=== PATIENT | female | born 1960 | race Caucasian/White ===

== ENCOUNTER 2016-07-27 17:30 | Emergency (ER) | payer OTHER ==
[2016-07-27 17:38] VITALS: BP 132/99; PULSE 90; TEMP 97.6; BMI 22.1
--- NOTE | 2016-07-27 17:49 | PDOC ---
History of Present Illness - General History Source: Patient Exam Limitations: No Limitations - History of Present Illness Initial Comments: 07/27/16 17:53 The patient is a 56 year old female with a PMHx of epilepsy who presents to the ED with left index finger pain for two days. Patient reports she was taking her garbage out when she tripped and fell. She caught her fall with her left hand. Her index finger bent back. Since then, she has had left index finger pain, and difficulty moving due to the pain. She reports associated swelling. She took Vicodin that her fiance had, with minimal relief. She has no other complaints. <Rody Lozoya - Last Filed: 07/27/16 18:56> - General History Source: Patient Exam Limitations: No Limitations <Quique Ortega - Last Filed: 07/27/16 19:07> - General Chief Complaint: Injury Stated Complaint: LEFT INDEX FINGER INJURY Time Seen by Provider: 07/27/16 17:32 Past History <Rody Lozoya - Last Filed: 07/27/16 18:56> - Past Medical History Psychiatric Problems: Yes (ANXIETY, INSOMNIA) Suicide Attempt (Hx): No Seizures: Yes - Psycho/Social/Smoking Cessation Hx Anxiety: Yes Suicidal Ideation: No Smoking History: Current every day smoker Have you smoked in the past 12 months: Yes Number of Cigarettes Smoked Daily: 3 Information on smoking cessation initiated: No 'Breaking Loose' booklet given: 12/31/14 Hx Alcohol Use: No Drug/Substance Use Hx: No Substance Use Type: None <Quique Ortega - Last Filed: 07/27/16 19:07> - Past Medical History Allergies/Adverse Reactions: Allergies Allergy/AdvReac Type Severity Reaction Status Date / Time acetaminophen [From Vicodin] AdvReac Intermediate Nausea Verified 07/27/16 17:31 codeine AdvReac Intermediate Nausea Verified 07/27/16 17:31 hydrocodone bitartrate AdvReac Intermediate Nausea Verified 07/27/16 17:31 [From Vicodin] morphine AdvReac Intermediate Nausea Verified 07/27/16 17:31 oxycodone HCl [From Percocet] AdvReac Intermediate Nausea Verified 07/27/16 17: 31 OPIATES Allergy Intermediate Nausea Uncoded 12/31/14 10:21 Home Medications: Ambulatory Orders Clonazepam 2 mg PO HS 07/27/16 Hydrocodone/Acetaminophen [Vicodin 5-300 mg Tablet] 1 each PO Q6H PRN #15 tablet MDD 4 07/27/16 Review of Systems - Review of Systems Able to Perform ROS?: Yes Comments:: 07/27/16 17:53 GENERAL/CONSTITUTIONAL: No fever or chills. No weakness. HEAD, EYES, EARS, NOSE AND THROAT: No change in vision. No ear pain or discharge. No sore throat. CARDIOVASCULAR: No chest pain or shortness of breath. RESPIRATORY: No cough, wheezing, or hemoptysis. GASTROINTESTINAL: No nausea, vomiting, diarrhea or constipation. GENITOURINARY: No dysuria, frequency, or change in urination. MUSCULOSKELETAL: + left index finger pain and swelling. No neck or back pain. SKIN: No rash NEUROLOGIC: No headache, vertigo, loss of consciousness, or change in strength/ sensation. ENDOCRINE: No increased thirst. No abnormal weight change. HEMATOLOGIC/LYMPHATIC: No anemia, easy bleeding, or history of blood clots. ALLERGIC/IMMUNOLOGIC: No hives or skin allergy. <Rody Lozoya - Last Filed: 07/27/16 18:56> *Physical Exam - Vital Signs Last Vital Signs Temp Pulse Resp BP Pulse Ox 97.6 F 90 18 132/99 96 07/27/16 17:34 07/27/16 17:34 07/27/16 17:34 07/27/16 17:34 07/27/16 17:34 - Physical Exam Comments: 07/27/16 17:53 GENERAL: Awake, alert, and fully oriented, in no acute distress HEAD: No signs of trauma EYES: PERRLA, EOMI, sclera anicteric, conjunctiva clear ENT: Auricles normal inspection, hearing grossly normal, nares patent, oropharynx clear without exudates. Moist mucosa NECK: Normal ROM, supple, no lymphadenopathy, JVD, or masses LUNGS: Breath sounds equal, clear to auscultation bilaterally. No wheezes, and no crackles HEART: Regular rate and rhythm, normal S1 and S2, no murmurs, rubs or gallops ABDOMEN: Soft, nontender, normoactive bowel sounds. No guarding, no rebound. No masses EXTREMITIES: 2+ radial pulses. Median radian ulnar nerve intact. Swelling and pain along left digit. Pain along PIP and second metacarpal head. Pain on flexion and extension of her digit. No clubbing or cyanosis. No cords, erythema. NEUROLOGICAL: Cranial nerves II through XII grossly intact. Normal speech, normal gait SKIN: Warm, Dry, normal turgor, no rashes or lesions noted. <Rody Lozoya - Last Filed: 07/27/16 18:56> - Vital Signs Last Vital Signs Temp Pulse Resp BP Pulse Ox 97.6 F 90 18 132/99 96 07/27/16 17:34 07/27/16 17:34 07/27/16 17:34 07/27/16 17:34 07/27/16 17:34 <Quique Ortega - Last Filed: 07/27/16 19:07> Procedures - Splinting Splint Location: Left: Finger, Wrist Pre-Proc Neuro Vasc Exam: normal Hand-Made Type: orthoglass Post-Proc Neuro Vasc Exam: normal Omar Bandage: 3" Sling: No Complications: No Progress: 07/27/16 19:02 Left radial gutter placed. <Quique Ortega - Last Filed: 07/27/16 19:07> ED Treatment Course - RADIOLOGY Radiograph Interpretation: 07/27/16 18:56 Finger X-Ray Reported by Dr. Gordon Ayala Impression: Slightly displaced fracture at the base of the second proximal phalanx, medially. <Rody Lozoya - Last Filed: 07/27/16 18:56> - RADIOLOGY Radiology Studies Ordered: Category Date Time Status FINGER(S) LEFT [RAD] Stat Radiology 07/27/16 17:44 Ordered <Quique Ortega - Last Filed: 07/27/16 19:07> Medical Decision Making - Medical Decision Making 07/27/16 19:02 A portion of this note was documented by scribe services under my direction. I have reviewed the details of the note, within reason, and agree with the documentation with the following case summary and management plan written by me. Patient treated in the ED. Nursing notes are reviewed and incorporated into the medical decision-making. Vital signs reviewed. Peripheral IV access obtained by the nurse, laboratory studies are drawn and sent, reviewed and interpreted by myself. Vital Signs Temp Pulse Resp BP Pulse Ox 97.6 F 90 18 132/99 96 07/27/16 17:34 07/27/16 17:34 07/27/16 17:34 07/27/16 17:34 07/27/16 17:34 56 year old female with history of epilepsy presents with left 2nd digit finger pain. Pt is left handed. 2 days ago, she fell. Denies other injuries. Reports pain around her left proximal phalanx. Neurovascularly intact. Xrays obtained. Appears to have a proximal phalanx fracture. Pt placed in a radial gutter splint. Pt reports that she is NOT allergic to vicodin. Will give her a prescription and referral to hand surgeon. Pt will go home with her family. <Quique Ortega - Last Filed: 07/27/16 19:07> *DC/Admit/Observation/Transfer - Attestations Scribe Attestion: 07/27/16 17:54 Documentation prepared by Rody Lozoya, acting as medical records technician for Quique Ortega MD. <Rody Lozoya - Last Filed: 07/27/16 18:56> - Discharge Dispostion Admit: No <Quique Ortega - Last Filed: 07/27/16 19:07> Diagnosis at time of Disposition: Proximal phalanx fracture of finger Qualifiers: Encounter type: initial encounter Finger: index finger Fracture type: closed Fracture alignment: displaced Laterality: left Qualified Code(s): S62.611A - Displaced fracture of proximal phalanx of left index finger, initial encounter for closed fracture - Discharge Dispostion Disposition: HOME Condition at time of disposition: Stable - Prescriptions Prescriptions: Hydrocodone/Acetaminophen [Vicodin 5-300 mg Tablet] 1 each PO Q6H PRN #15 tablet MDD 4 PRN Reason: Pain Level 6-10 - Referrals Referrals: Gildardo Kenney MD [Staff Physician] - - Patient Instructions Printed Discharge Instructions: DI for Finger Fracture Additional Instructions: Please wear the splint at all times. Elevate the hand as much as you can. Take 600 mg ibuprofen every 6 hours as needed for pain. For additional relief, please take a tablet of vicodin every 6 hours as needed. Please follow up with a hand surgeon. Call to schedule an appointment.
== END 2016-07-27 19:11 | disposition home or self-care (01) ==
LOC: FER 17:30
PROC: 2W3KX1Z Immobilization of Left Finger using Splint (ICD-10-PCS; principal; 2016-07-27)
DX: S62.611A Displaced fracture of proximal phalanx of left index finger, initial encounter for closed fracture (principal); X58.XXXA Exposure to other specified factors, initial encounter; Y93.89 Activity, other specified; Y92.008 Other place in unspecified non-institutional (private) residence as the place of occurrence of the external cause; F17.210 Nicotine dependence, cigarettes, uncomplicated; G40.909 Epilepsy, unspecified, not intractable, without status epilepticus
CPT/HCPCS: 29130; 73140-TC-LT; 99283-25

== ENCOUNTER 2016-10-20 17:00 | Emergency (ER) | payer OTHER ==
[2016-10-20 17:06] VITALS: BP 122/88; PULSE 108; TEMP 97.6; BMI 21.4
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
== END 2016-10-20 18:08 | disposition home or self-care (01) ==
LOC: FER 17:00
PROC: 2W3EX1Z Immobilization of Right Hand using Splint (ICD-10-PCS; principal; 2016-10-20)
DX: S62.001A Unspecified fracture of navicular [scaphoid] bone of right wrist, initial encounter for closed fracture (principal); W18.2XXA Fall in (into) shower or empty bathtub, initial encounter; Y93.E1 Activity, personal bathing and showering; Y92.002 Bathroom of unspecified non-institutional (private) residence as the place of occurrence of the external cause; Z87.891 Personal history of nicotine dependence; F41.0 Panic disorder [episodic paroxysmal anxiety]; G47.00 Insomnia, unspecified
CPT/HCPCS: 29125; 73110-TC-RT; 99282-25

== ENCOUNTER 2016-11-29 10:10 | Emergency (ER) | payer OTHER ==
[2016-11-29 10:17] VITALS: BP 124/85; PULSE 94; TEMP 97.8; BMI 21.8
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
[2016-11-29] MEDS ORDERED: ONDANSETRON *ODT* 4 MG TABLET SL ONE (10:52)
[2016-11-29] MEDS ORDERED: ONDANSETRON *ODT* 4 MG TABLET ONE (10:54)
== END 2016-11-29 15:05 | disposition home or self-care (01) ==
LOC: FER 10:10
DX: S20.211A Contusion of right front wall of thorax, initial encounter (principal); V18.0XXA Pedal cycle driver injured in noncollision transport accident in nontraffic accident, initial encounter; Y93.55 Activity, bike riding; Y92.89 Other specified places as the place of occurrence of the external cause; F41.9 Anxiety disorder, unspecified; F17.210 Nicotine dependence, cigarettes, uncomplicated; Z88.6 Allergy status to analgesic agent; Z88.5 Allergy status to narcotic agent
CPT/HCPCS: 71020-TC; 71101-TC-RT; 99283-25

== ENCOUNTER 2016-12-30 09:49 | Emergency (ER) | payer OTHER ==
[2016-12-30 09:55] VITALS: TEMP 97.7; BMI 21.8
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
[2016-12-30] MEDS ORDERED: HYDROmorphone HCL CARPU-JECT 1 MG/1 ML DISP.SYRIN IVPUSH ONE (10:26)
[2016-12-30] MEDS ORDERED: ONDANSETRON 4 MG/2 ML VIAL IVPUSH ONE (10:27)
[2016-12-30] MEDS ORDERED: HYDROmorphone HCL CARPU-JECT 1 MG/1 ML DISP.SYRIN ONE (10:28)
[2016-12-30] MEDS ORDERED: ONDANSETRON 4 MG/2 ML VIAL ONE (10:29)
[2016-12-30 10:57] LABS: URINE APPEARANCE Cloudy; URINE BILIRUBIN Negative (NEGATIVE); URINE GLUCOSE (UA) Negative (NEGATIVE); URINE KETONE Negative (NEGATIVE); URINE NITRITE Positive (NEGATIVE); URINE UROBILINOGEN 0.2 (0.2-1.0)
[2016-12-30 10:58] LABS: URINE BLOOD Trace-intact (NEGATIVE); URINE COLOR YELLOW; URINE LEUK ESTERASE 2+ (NEGATIVE); URINE PROTEIN 1+ (NEGATIVE)
[2016-12-30 11:03] LABS: BASOPHIL 0.4 % (0-2.0); EOSINOPHIL 1.2 % (0-4.5); NEUTROPHILS 64.6 % (42.8-82.8)
[2016-12-30 11:08] LABS: MCHC 34.4 g/dl (32.0-36.0); MEAN CELL VOLUME 101.6 fl (80-96); MEAN PLT VOLUME 7.8 fl (7.5-11.1); RDW 13.8 % (11.6-15.6); WHITE BLOOD COUNT 6.2 K/mm3 (4.0-10.8)
[2016-12-30 11:13] LABS: INR 0.95 (0.82-1.09); PROTHROMBIN TIME (PATIENT) 10.7 SEC (10.2-13.0)
[2016-12-30 11:15] LABS: ALBUMIN 3.5 g/dl (3.5-5.0); ALK PHOS 72 U/L (32-92); ANION GAP 8 (8-16); BILIRUBIN,TOTAL 0.7 mg/dl (0.2-1.0); CALCIUM 8.6 mg/dl (8.4-10.2); CO2 29 mmol/L (22-28); CREATININE 0.6 mg/dl (0.6-1.3); GLUCOSE,RANDOM 110 mg/dl (74-106); SGOT/AST 27 U/L (10-42); SGPT/ALT 25 U/L (10-40); TOT PROT 5.9 g/dl (6.4-8.3)
[2016-12-30 11:25] LABS: PLATELET COUNT 251 K/MM3 (134-434)
[2016-12-30 11:50] LABS: URINE RBC 0-3 /hpf (0-3)
[2016-12-30 11:51] LABS: URINE BACTERIA MANY /hpf (NEGATIVE)
[2016-12-30] MEDS ORDERED: cefTRIAXone SODIUM 1 GM VIAL ONE (11:58)
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
[2016-12-30] MEDS ORDERED: KETOROLAC TROMETHAMINE 30 MG/1 ML VIAL IVPUSH ONE (12:11)
[2016-12-30] MEDS ORDERED: KETOROLAC TROMETHAMINE 30 MG/1 ML VIAL ONE (12:12)
[2016-12-30] MEDS ORDERED: ALPRAZolam 0.25 MG TABLET PO ONE (12:48)
[2016-12-30] MEDS ORDERED: ALPRAZolam 0.25 MG TABLET ONE (12:59)
[2016-12-30 14:01] LABS: TROPONIN I (DFP) 0.21 ng/ml (0.03-0.50)
[2016-12-30 15:03] VITALS: BP 126/74; PULSE 78
--- NOTE | 2016-12-31 15:56 | EKG ---
Test Reason : Blood Pressure : / mmHG Vent. Rate : 077 BPM Atrial Rate : 075 BPM P-R Int : 000 ms QRS Dur : 070 ms QT Int : 398 ms P-R-T Axes : 000 147 147 degrees QTc Int : 450 ms SUSPECT ARM LEAD REVERSAL, INTERPRETATION ASSUMES NO REVERSAL NORMAL SINUS RHYTHM ? LATERAL INFARCT , AGE UNDETERMINED POOR R WAVE PROGRESSION NO PREVIOUS ECGS AVAILABLE please repeat Confirmed by MD FARAZ, EYAD ([id number]) on 12/31/2016 3:55:52 PM Referred By: TONG ORDONEZ Confirmed By:EYAD RUTH MD
== END 2016-12-30 15:05 | disposition home or self-care (01) ==
LOC: FER 09:49
PROC: 3E03329 Introduction of Other Anti-infective into Peripheral Vein, Percutaneous Approach (ICD-10-PCS; principal; 2016-12-30)
PROC: 3E033NZ Introduction of Analgesics, Hypnotics, Sedatives into Peripheral Vein, Percutaneous Approach (ICD-10-PCS; 2016-12-30)
PROC: 3E0333Z Introduction of Anti-inflammatory into Peripheral Vein, Percutaneous Approach (ICD-10-PCS; 2016-12-30)
PROC: 3E033GC Introduction of Other Therapeutic Substance into Peripheral Vein, Percutaneous Approach (ICD-10-PCS; 2016-12-30)
DX: R07.89 Other chest pain (principal); N39.0 Urinary tract infection, site not specified; F40.233 Fear of injury; F17.210 Nicotine dependence, cigarettes, uncomplicated
CPT/HCPCS: 36415; 71020-TC; 71275-TC; 80053; 81003; 81015; 84484; 85025; 85379; 85610; 87086; 87186; 93005; 99284-25